=== PATIENT | male | born 1975 | race Caucasian/White ===

== ENCOUNTER 2024-05-15 09:23 | Outpatient (CLI) | payer OTHER, SELFPAY ==
[2024-05-15 18:32] LABS: Basophils # 0.1 K/mm3 (0-0.2); Basophils % 0.9 % (0.1-2.0); Eosinophils # 0.1 K/mm3 (0.0-0.4); Eosinophils % 1.1 % (0.1-12.0); Hematocrit 53.8 % (42.0-52.0); Hemoglobin 17.6 g/dL (14.1-18.0); Lymphocytes # 1.7 K/mm3 (0.7-4.5); Lymphocytes % 20.8 % (10-50); Mean Corpuscular HGB Conc 32.8 g/dL (31.8-35.4); Mean Corpuscular Hemoglobin 33.6 pg (27.0-31.2); Mean Corpuscular Volume 102.3 fl (80-94); Mean Platelet Volume 10.2 fl (7.4-10.4); Monocytes # 0.8 K/mm3 (0.1-1.0); Monocytes % 10.2 % (1.7-9.3); Neutrophils # 5.5 K/mm3 (1.8-7.8); Neutrophils % 66.9 % (37.0-80.0); Platelet Count 227 K/mm3 (142-424); Red Blood Count 5.26 M/mm3 (4.60-6.20); Red Cell Distribution Width 14.4 % (11.5-17.5); White Blood Count 8.2 K/mm3 (4.8-10.8)
[2024-05-15 18:58] LABS: Alanine Aminotransferase 127 U/L (12-78); Albumin Level 4.4 g/dl (3.5-5.0); Albumin/Globulin Ratio 1.7 (1.1-1.8); Alkaline Phosphatase 75 U/L (38-126); Anion Gap 13.9 mEq/L (5-15); Aspartate Amino Transferase 56 U/L (17-59); Bilirubin,Total 0.7 mg/dl (0.2-1.3); Blood Urea Nitrogen 17 mg/dl (9-20); Calcium 9.7 mg/dl (8.4-10.2); Carbon Dioxide 26 mmol/L (22.0-30.0); Chloride 106 mmol/L (98-107); Estimated Glomerular Filt Rate 64 ml/min (>60); GFR (African American) 78 ML/MIN (>60); Globulin 2.6 g/dL (1.3-3.2); Glucose 91 mg/dl (74-100); Potassium 3.9 mmoL/L (3.5-5.1); Sodium 142 mmol/L (136-145)
[2024-05-15 19:10] LABS: Hemoglobin A1C 4.9 % (4.0-6.0)
[2024-05-15 19:17] LABS: 25-OH Vitamin D, Total 47.3 ng/mL (30-100)
[2024-05-15 19:30] LABS: Prostate Specific Ag Screen 1.3 ng/ml (0.0-4.0); Thyroid Stimulating Hormone 1.04 uIU/mL (0.465-4.68)
[2024-05-15 19:49] LABS: Vitamin B12 298 pg/mL (239-931)
== END 2024-05-15 23:59 | disposition home or self-care (01) ==
LOC: LAB.DROPOF 05-18 09:23
PROVIDERS: PCP Nurse Practitioner Family; Visit Provider Nurse Practitioner Family
DX: Z76.89 Persons encountering health services in other specified circumstances (principal)
CPT/HCPCS: 80050; 80053; 82306; 82607; 83036; 84443; 85025; G0103

== ENCOUNTER 2024-06-03 14:54 | Outpatient (CLI) | payer MEDICARE, MEDICAID, SELFPAY ==
--- NOTE | 2024-06-03 15:05 | MR_ITS ---
FINAL REPORT CLINICAL HISTORY: LOw back pain FINDINGS: Multiplanar MR imaging of the lumbar spine was performed without contrast. On the sagittal T2-weighted images, disc degeneration is seen at several levels. There are Schmorl's nodes at multiple levels. Multiple hemangiomas are identified. The vertebral alignment is normal. There is no evidence of fracture. The conus has an unremarkable appearance. L1-2: There is no significant canal stenosis or neural foraminal narrowing. L2-3: An annular bulge and facet arthropathy are present. There is no significant canal stenosis or neural foraminal narrowing. L3-4: Annular disc bulge is present. There is mild central canal stenosis with an AP diameter of the thecal sac of 9 mm. L4-5: An annular bulge and facet arthropathy are present. Small central disc protrusion contacts the L5 nerve roots. There is mild bilateral neural foraminal narrowing. L5-S1: An annular bulge and facet arthropathy are present. There is mild bilateral neural foraminal narrowing. IMPRESSION: Small central disc protrusion at L4-5 contacts the L5 nerve roots. Multilevel degenerative disc disease and spondylosis with mild central canal stenosis at L3-4. Reviewed, Interpreted and Dictated by Collins Cotto III, MD Transcribed by Yennifer Ramos Authenticated and [facility]
== END 2024-06-03 23:59 | disposition home or self-care (01) ==
LOC: RAD 14:56
PROVIDERS: PCP Family Medicine; Visit Provider Nurse Practitioner Family
DX: M54.50 Low back pain, unspecified (principal); M79.604 Pain in right leg
CPT/HCPCS: 72148

== ENCOUNTER 2024-06-10 15:02 | Outpatient (CLI) | payer MEDICARE, MEDICAID, SELFPAY ==
[2024-06-10] MEDS: ALBUTEROL 0.083% 2.5 MG/3 ML NEB IH (15:53)
== END 2024-06-10 23:59 | disposition home or self-care (01) ==
LOC: RT 15:04
PROVIDERS: PCP Family Medicine; Visit Provider Nurse Practitioner Family
DX: R06.02 Shortness of breath (principal); F17.210 Nicotine dependence, cigarettes, uncomplicated
CPT/HCPCS: 94060; 94726; 94729; J7613

== ENCOUNTER 2024-07-08 10:51 | Outpatient (POV) | payer MEDICARE, MEDICAID, SELFPAY ==
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
[2024-07-08 11:57] VITALS: BP 131/76; PULSE 79; RESP 18; O2SAT 97; BMI 28.8
== END 2024-07-08 23:59 | disposition home or self-care (01) ==
LOC: SC.PAIN 10:52
PROVIDERS: PCP Family Medicine; Visit Provider Nurse Practitioner Family
DX: M46.1 Sacroiliitis, not elsewhere classified (principal); M51.36 Other intervertebral disc degeneration, lumbar region; M54.2 Cervicalgia; M54.12 Radiculopathy, cervical region; Z73.89 Other problems related to life management difficulty
CPT/HCPCS: 99202; G0463

== ENCOUNTER 2024-07-21 10:08 | Day surgery (SDC) | payer MEDICARE, MEDICAID, SELFPAY ==
[2024-07-21 10:24] VITALS: BP 138/80; PULSE 84; RESP 16; TEMP 36.2; O2SAT 95; BMI 29.0
[2024-07-21 11:01] VITALS: BP 126/80; PULSE 85; RESP 18; O2SAT 98
[2024-07-21 11:03] VITALS: BP 126/80; PULSE 85; RESP 18; O2SAT 96
[2024-07-21 11:10] VITALS: BP 128/76; PULSE 74; RESP 18; O2SAT 96
--- NOTE | 2024-07-21 11:12 | EXP.PAIN.PRO ---
Procedure Date: 07/21/24 Time: 11:00 Anesthesiologist:: Kyaw He CRNA Complications:: None Pre-procedure Diagnosis:: Right sacroiliitis Post-procedure Diagnosis:: Same Indications for Procedure:: Patient is a pleasant 48-year-old male comes to clinic today for right sacroiliac joint injection of cortisone and local anesthetic. He describes right posterior hip pain is constant, dull, aching. He reports having difficulty transitioning from sitting to standing. He rates his pain 7/10. Procedure Details:: Procedure: Right sacroliliac joint injection under fluoroscopy Informed consent was obtained and the risk and benefits of the procedure were explained to the patient.~ The patient was taken to the procedure room and noninvasive monitors were placed including noninvasive blood pressure cuff and pulse oximeter.~ The patient was placed prone on the procedure table.~ The~ right hip was cleansed using Betadine as a cleansing solution.~ C-arm fluorosocpy was used to view the right SI joint.~ The skin and subcutaneous tissues were anesthetized using Lidocaine 1.5% and a 25-gauge needle.~ After this, a 22-gauge spinal needle was inserted under fluoroscopic guidance into the inferior aspect of the right SI joint.~ Omnipaque dye was injected and a good spread was seen throughout the joint.~ After this, approximately 5 mL of bupivacaine 0.25% and Depo-Medrol 40 mg was incrementally injected into the sacroiliac joint.~ The patient tolerated the procedure well with no complications.~ The patient was observed in the Pain Clinic, then discharged home neurologically intact.~ Plan and Disposition:: Patient was discharged without incident.
[2024-07-21] MEDS: BUPIVACAINE 0.25% 10ML INJ 25 MG IJ (11:46)
[2024-07-21] MEDS: LIDOCAINE 1% 5ML PF VIAL 5 ML (11:47)
[2024-07-21] MEDS: methylPREDNISolone ACETATE 80MG/ML VIAL 80 MG (11:47)
== END 2024-07-21 11:10 | disposition home or self-care (01) ==
PROVIDERS: PCP Family Medicine; Visit Provider Nurse Anesthetist, Certified Registered
DX: M46.1 Sacroiliitis, not elsewhere classified (principal)
CPT/HCPCS: 27096; G0260; J1010

== ENCOUNTER 2024-08-04 12:09 | Outpatient (CLI) | payer MEDICARE, MEDICAID, SELFPAY ==
[2024-08-04 18:44] LABS: Basophils # 0.1 K/mm3 (0-0.2); Basophils % 0.9 % (0.1-2.0); Eosinophils # 0.1 K/mm3 (0.0-0.4); Eosinophils % 1.3 % (0.1-12.0); Hematocrit 54.5 % (42.0-52.0); Hemoglobin 17.3 g/dL (14.1-18.0); Lymphocytes # 1.6 K/mm3 (0.7-4.5); Lymphocytes % 20.7 % (10-50); Mean Corpuscular HGB Conc 31.8 g/dL (31.8-35.4); Mean Corpuscular Hemoglobin 33.7 pg (27.0-31.2); Mean Corpuscular Volume 106.1 fl (80-94); Mean Platelet Volume 9.4 fl (7.4-10.4); Monocytes # 0.6 K/mm3 (0.1-1.0); Monocytes % 7.4 % (1.7-9.3); Neutrophils # 5.4 K/mm3 (1.8-7.8); Neutrophils % 69.7 % (37.0-80.0); Platelet Count 220 K/mm3 (142-424); Red Blood Count 5.13 M/mm3 (4.60-6.20); Red Cell Distribution Width 14.9 % (11.5-17.5); White Blood Count 7.8 K/mm3 (4.8-10.8)
[2024-08-04 19:01] LABS: Alanine Aminotransferase 59 U/L (12-78); Albumin Level 3.6 g/dl (3.5-5.0); Albumin/Globulin Ratio 1.4 (1.1-1.8); Alkaline Phosphatase 62 U/L (38-126); Aspartate Amino Transferase 60 U/L (17-59); Bilirubin,Total 0.7 mg/dl (0.2-1.3); Blood Urea Nitrogen 8 mg/dl (9-20); Calcium 9.1 mg/dl (8.4-10.2); Carbon Dioxide 31 mmol/L (22.0-30.0); Chloride 106 mmol/L (98-107); Estimated Glomerular Filt Rate 103 ml/min (>60); GFR (African American) 124 ML/MIN (>60); Globulin 2.6 g/dL (1.3-3.2); Glucose 99 mg/dl (74-100); Sodium 138 mmol/L (136-145); Total Protein,Serum 6.2 g/dl (6.3-8.2)
[2024-08-04 19:32] LABS: Thyroid Stimulating Hormone 0.98 uIU/mL (0.465-4.68)
== END 2024-08-04 23:59 | disposition home or self-care (01) ==
LOC: LAB.DROPOF 08-05 12:10
PROVIDERS: PCP Family Medicine; Visit Provider Family Medicine
DX: J42 Unspecified chronic bronchitis (principal); R25.1 Tremor, unspecified
CPT/HCPCS: 80050; 80053; 84443; 85025; 87635

== ENCOUNTER 2024-08-13 12:58 | Outpatient (POV) | payer MEDICARE, MEDICAID, SELFPAY ==
--- NOTE | 2024-08-13 13:21 | EXP.PAIN.SOA ---
[facility] Disclaimer: The information contained in this section may have been updated after the patient was seen, as this information can be updated by other users. Medical History (Updated 08/13/24 @ 14:19 by Carmen Phan APRN) Tremor Chronic bronchitis Impacted cerumen of left ear Hearing loss Surgical History History of back surgery Family History Other Hypertension Social History Smoking Status: Current every day smoker alcohol intake: current current occupational status: other Travel in the last 8 weeks: None PM Subjective & Objective Subjective Subjective:: Patient is a pleasant 48-year-old male who presents today for follow-up of right SI injection on 07/21/2024. Today he rates his pain a 8 out of 10. He denies any new trauma or injury. He states that that injection really just numbed his buttocks area and did not seem to make much difference on the overall back and right hip pain. Today he does state he still experiencing that chronic pain throughout his low back along the right side and does feel like he has had more numbness going down into his right leg. Patient does also state that his leg has been randomly giving out. He states all of this is affecting his ability perform activities of daily living such as cooking and cleaning. Patient has tried and failed conservative therapy including oral medication, heat and ice, topicals, chiropractor therapy and continued at home stretching exercise longer than 6 weeks. Patient did have physical therapy in the past however it caused worsening pain. On his last visit the patient was prescribed compounded cream. Today he states that he did not really notice significant relief with this. Patient states the only thing that has ever really seem to provide much improvement was Percocet and gabapentin.His French has been reviewed and is appropriate. Review of Systems: General: No recent weight changes, no fever, no sleep disturbances Respiratory: No cough, no shortness of air, no recurring pulmonary infections Cardiovascular/peripheral vascular: No chest pain, no palpitations, no edema, no shortness of breath Gastrointestinal: No new onset incontinence, normal bowel movements reported Genitourinary: No new onset incontinence Musculoskeletal: Low back pain, right leg pain Psychiatric: [Normal mood/affect] Neurological: [Denies weakness in extremities], [denies balance issues] Pain at rest (0-10 scale): 8 Objective Objective:: Physical Exam: General: Alert and oriented x3, no acute distress, pleasant and cooperative Lungs: Respirations even and unlabored, symmetrical chest expansion Eyes: PERRL Musculoskeletal: Flexion and extension of lumbar [spine] somewhat guarded secondary to pain, [antalgic gait noted] positive right leg raise with decreased sensation to light touch and decreased reflexes Neurological: Speech clear, no gross sensory deficit FINDINGS: Multiplanar MR imaging of the lumbar spine was performed without contrast. On the sagittal T2-weighted images, disc degeneration is seen at several levels. There are Schmorl's nodes at multiple levels. Multiple hemangiomas are identified. The vertebral alignment is normal. There is no evidence of fracture. The conus has an unremarkable appearance. L1-2: There is no significant canal stenosis or neural foraminal narrowing. L2-3: An annular bulge and facet arthropathy are present. There is no significant canal stenosis or neural foraminal narrowing. L3-4: Annular disc bulge is present. There is mild central canal stenosis with an AP diameter of the thecal sac of 9 mm. L4-5: An annular bulge and facet arthropathy are present. Small central disc protrusion contacts the L5 nerve roots. There is mild bilateral neural foraminal narrowing. L5-S1: An annular bulge and facet arthropathy are present. There is mild bilateral neural foraminal narrowing. IMPRESSION: Small central disc protrusion at L4-5 contacts the L5 nerve roots. Multilevel degenerative disc disease and spondylosis with mild central canal stenosis at L3-4. Reviewed, Interpreted and Dictated by Collins Cotto III, MD Transcribed by Yennifer Ramos Authenticated and [facility] Has patient had previous pain injection?: Yes Percent improvement in pain since last injection: 0 Conservative treatment options previously tried: Home exercise plan Length of treatment: Longer than 6 weeks Meds Home Medications and Allergies Home Medications ?Medication ?Instructions ?Recorded ?Confirmed ?Type fluticasone fur. 100 mcg-umeclid 1 inh inhalation DAILY #60 ea 07/10/24 08/13/24 Rx 62.5 mcg-vilant 25 mcg inhalat.powder (Trelegy Ellipta) glycopyrrolate 9 mcg-formoterol 2 puff inhalation BID #10.7 grams 07/12/24 08/13/24 Rx 4.8 mcg HFA aerosol inhaler (Bevespi Aerosphere) albuterol sulfate 90 mcg/actuation 2 puff inhalation QID PRN 08/04/24 08/13/24 Rx aerosol inhaler shortness of breath or wheezing #8.5 grams azithromycin 500 mg tablet See Rx Instructions PO .COMPLEX #3 08/04/24 08/13/24 Rx tabs methylprednisolone 4 mg tablets in See Rx Instructions PO PER PKG DIR 08/04/24 08/13/24 Rx a dose pack (Medrol (Chidi)) #21 tabs New Prescriptions to Start Prescriptions: Allergies Allergy/AdvReac Type Severity Reaction Status Date / Time No Known Allergies Allergy Verified 08/13/24 13:54 Assessment and Plan *Assessment and plan (1) Degenerative disc disease, lumbar: Status: Acute Category: Medical Code(s): M51.36 - Other intervertebral disc degeneration, lumbar region (2) Lumbar radiculopathy: Status: Acute Category: Medical Code(s): M54.16 - Radiculopathy, lumbar region Plan patient is experiencing significant pain throughout his low back with radiating symptoms down his entire right extremity. Patient does have numbness with decreased sensation into this extremity and does feel like his leg is giving out more. I did discuss with the patient that he may benefit from a transforaminal epidural steroid injection. Risk and benefits were discussed with the patient and he would like to proceed forward with this plan of care. Patient has tried and failed conservative therapy including continued at home stretching exercise for longer than 6 weeks. Patient will be scheduled for a right transforaminal epidural steroid injection L4-L5 and L5-S1 under fluoroscopy. Patient has been instructed to contact the clinic with any concerns before the next appointment. Dr. Madera has reviewed this note and agrees with this plan of care. This note was dictated using voice recognition software and make contain errors or omissions. All injections are used with Lidocaine or Bupivacaine and Depo Medrol.
[2024-08-13 14:01] VITALS: BP 123/75; PULSE 79; RESP 16; O2SAT 97; BMI 29.0
== END 2024-08-13 23:59 | disposition home or self-care (01) ==
LOC: SC.PAIN 12:59
PROVIDERS: PCP Family Medicine; Visit Provider Nurse Practitioner Family
DX: M51.16 Intervertebral disc disorders with radiculopathy, lumbar region (principal); F17.210 Nicotine dependence, cigarettes, uncomplicated; Z73.89 Other problems related to life management difficulty
CPT/HCPCS: 99212; G0463

== ENCOUNTER 2024-09-01 11:07 | Day surgery (SDC) | payer MEDICARE, MEDICAID, SELFPAY ==
[2024-09-01 11:30] VITALS: BP 124/74; BP 125/78; PULSE 66; PULSE 71; RESP 16; TEMP 36.7; O2SAT 95; O2SAT 98; BMI 29.0
[2024-09-01 11:40] VITALS: BP 135/66; PULSE 74; RESP 18; O2SAT 94
[2024-09-01] MEDS: LIDOCAINE 1% 5ML PF VIAL 5 ML (11:40)
[2024-09-01 11:41] VITALS: BP 135/66; PULSE 74; RESP 18; O2SAT 94
--- NOTE | 2024-09-01 11:43 | P.PCN_ITS ---
Procedure Date: 09/01/24 Time: 11:30 Anesthesiologist:: Kyaw He CRNA Complications:: None Pre-procedure Diagnosis:: Degenerative disc lumbar spine multilevels. Lumbar radiculopathy. Lumbar disc bulge L4-5, L5-S1. Lumbar postlaminectomy syndrome. Post-procedure Diagnosis:: Same. Indications for Procedure:: Patient is a pleasant 48-year-old male who comes our clinic today for right L4-5 and L5-S1 transforaminal epidural steroid injection. Patient reports right hip and leg radicular symptoms to the foot. Patient also reports some low back pain off the midline to the right. Denies left leg radicular symptoms. Rates his pain 8/10. Procedure Details:: Details of the procedure explained to the patient. The patient was taken to procedure room placed in the prone position. The area over the lumbar spine was cleansed using chlorhexidine as a cleansing solution. Using fluoroscopy guidance markers were placed over the right border of the L4-5 and L5-S1 vertebral body. At each marker the skin and subcutaneous tissue was an esthetized using 1% lidocaine and a 25-gauge needle. At this time using fluoroscopy guidance 3 and half inch 22-gauge spinal needle was used to access the upper one third of the L4 for 5 and L5-S1 foramen. Using fluoroscopy guidance in the lateral position needle position was confirmed using 0.5 mL of contrast dye. Good spread was noted in the epidural space at each level. After negative aspiration 2 mL of 1% lidocaine and 40 mg of Depo-Medrol was injected at each level. Patient tolerated procedure without difficulty. There are no complications. Plan and Disposition:: Patient was discharged without incident.
== END 2024-09-01 11:45 | disposition home or self-care (01) ==
PROVIDERS: PCP Family Medicine; Visit Provider Nurse Anesthetist, Certified Registered
DX: M51.16 Intervertebral disc disorders with radiculopathy, lumbar region (principal); M96.1 Postlaminectomy syndrome, not elsewhere classified
CPT/HCPCS: 64483; 64484; J1010

== ENCOUNTER 2024-09-23 11:20 | Outpatient (POV) | payer MEDICARE, MEDICAID, SELFPAY ==
[2024-09-23 11:37] VITALS: BP 121/70; PULSE 92; RESP 14; O2SAT 92; BMI 29.0
--- NOTE | 2024-09-23 12:04 | EXP.PAIN.SOA ---
[facility] Disclaimer: The information contained in this section may have been updated after the patient was seen, as this information can be updated by other users. Medical History Tremor Chronic bronchitis Impacted cerumen of left ear Hearing loss Surgical History History of back surgery Family History Other Hypertension Social History Smoking Status: Current every day smoker alcohol intake: current current occupational status: other Travel in the last 8 weeks: None PM Subjective & Objective Subjective Subjective:: Patient is a pleasant 48-year-old male who presents today for follow-up of right transforaminal epidural steroid injection L4-L5 and L5-S1 on 09/01/2024. Today he rates his pain a 7 out of 10. He denies any new trauma or injury. He does state that he only had improvement really while the numbness medication was working and by the time 3 or 4 hours had passed he was back to his baseline. Patient does state that often times it just causes more issue than providing improvement with the injections. Patient has been given compounded cream however felt like it did not really provide much improvement. Patient has stated that the only thing that really ever made a difference in the past was gabapentin and Percocet. His French has been reviewed and is appropriate. Review of Systems: General: No recent weight changes, no fever, no sleep disturbances Respiratory: No cough, no shortness of air, no recurring pulmonary infections Cardiovascular/peripheral vascular: No chest pain, no palpitations, no edema, no shortness of breath Gastrointestinal: No new onset incontinence, normal bowel movements reported Genitourinary: No new onset incontinence Musculoskeletal: Low back pain Psychiatric: [Normal mood/affect] Neurological: [Denies weakness in extremities], [denies balance issues] Pain at rest (0-10 scale): 7 Objective Objective:: Physical Exam: General: Alert and oriented x3, no acute distress, pleasant and cooperative Lungs: Respirations even and unlabored, symmetrical chest expansion Eyes: PERRL Musculoskeletal: Flexion and extension of lumbar [spine] somewhat guarded secondary to pain, [antalgic gait noted] Neurological: Speech clear, no gross sensory deficit Has patient had previous pain injection?: Yes Percent improvement in pain since last injection: Minimal Conservative treatment options previously tried: Home exercise plan Length of treatment: Longer than 12 weeks Meds Home Medications and Allergies Home Medications ?Medication ?Instructions ?Recorded ?Confirmed ?Type fluticasone fur. 100 mcg-umeclid 1 inh inhalation DAILY #60 ea 07/10/24 09/23/24 Rx 62.5 mcg-vilant 25 mcg inhalat.powder (Trelegy Ellipta) glycopyrrolate 9 mcg-formoterol 2 puff inhalation BID #10.7 grams 07/12/24 09/23/24 Rx 4.8 mcg HFA aerosol inhaler (Bevespi Aerosphere) albuterol sulfate 90 mcg/actuation 2 puff inhalation QID PRN 08/04/24 09/23/24 Rx aerosol inhaler shortness of breath or wheezing #8.5 grams azithromycin 500 mg tablet See Rx Instructions PO .COMPLEX #3 08/04/24 09/23/24 Rx tabs methylprednisolone 4 mg tablets in See Rx Instructions PO PER PKG DIR 08/04/24 09/23/24 Rx a dose pack (Medrol (Chidi)) #21 tabs New Prescriptions to Start Prescriptions: Allergies Allergy/AdvReac Type Severity Reaction Status Date / Time No Known Allergies Allergy Verified 08/13/24 13:54 Assessment and Plan *Assessment and plan (1) Degenerative disc disease, lumbar: Status: Acute Category: Medical Code(s): M51.36 - Other intervertebral disc degeneration, lumbar region (2) Lumbar radiculopathy: Status: Acute Category: Medical Code(s): M54.16 - Radiculopathy, lumbar region Plan Patient was counseled due to only getting very temporary relief with the past 2 injections that I do believe he would benefit more with the intrathecal pain pump trial. Risk and benefits and educational handouts were given to the patient at today's visit. They would like time to think on this. I have counseled them that there is no robledo and that they are more than welcome to call us back to schedule their next follow-up appointment or if they would like to proceed forward with our office ordering the psychological evaluation. Patient was counseled that we would need this evaluation before proceeding forward with ordering the trial. Patient acknowledges understanding. Patient will contact our office for his next follow-up. I did let them know that if they wanted us to proceed forward with the psychological evaluation they could call and we did send this order on. Patient has been instructed to contact the clinic with any concerns before the next appointment. Dr. Madera has reviewed this note and agrees with this plan of care. This note was dictated using voice recognition software and make contain errors or omissions. All injections are used with Lidocaine or Bupivacaine and Depo Medrol.
== END 2024-09-23 23:59 | disposition home or self-care (01) ==
LOC: SC.PAIN 11:22
PROVIDERS: PCP Family Medicine; Visit Provider Nurse Practitioner Family
DX: M51.16 Intervertebral disc disorders with radiculopathy, lumbar region (principal); F17.210 Nicotine dependence, cigarettes, uncomplicated
CPT/HCPCS: 99212; G0463

== ENCOUNTER 2025-09-28 15:00 | Outpatient (CLI) | payer MEDICARE, MEDICAID, SELFPAY ==
--- OUTSIDE RECORDS SUMMARY | 2025-07-31 09:15 | XMS_ITS | Encounter Summary ---
Author Organization [place] [address] Care Team Providers Care Plater Supervisor Name Role Phone Unavailable Primary Care Provider Unavailabl e Reason for Visit * Reason Comments Cough cough, congestion, h eadache, sore throat, fever x Saturday Encounter Details Date Type Department Care Team (Late st Contact Info) Description 07/31/2025 10:15 AM EDT Office Visit [facility] [address] [address] Pepe Caceres, DO [address] [place] [address] [phone] Pneumonia of right lower lobe due to infectious organism (Primary Dx); Acute cough Social History Tobacco Use Types Packs/Day Years Used Date Smoking Tobacco: Every Day Cigarettes 1 35.4 Started: 05/14/1990 Smokeless Tobacco: Never Alcohol Use Standard Drinks/Week Comments Yes 2 (1 standard drink = 0.6 oz pur e alcohol) PHQ-2 Answer Date Recorded PHQ-2 Score 6 04/17/2019 Sex and Gender Information Value Date Recorded Sex Assigned at Not on file Legal Sex Male 3:29 PM EDT Gender Identity Not on file Sexual Orientation Not on file documented as of this encounter Last Filed Vital Signs Vital Sign Reading Time Taken Comments Blood Pressure 100/60 07/31/2025 10:06 AM EDT Pulse 96 07/31/2025 10:06 AM EDT Temperature 37.2 C (99 F) 07/31/2025 10:06 AM EDT Respiratory Rate 14 07/31/2025 10:06 AM EDT Oxygen Saturation 93% 07/31/2025 10:06 AM EDT Inhaled Oxygen Concentration - - Weight 82.6 kg (182 lb) 07/31/2025 10:06 AM EDT Height 185.4 cm (6' 1 ) 07/31/2025 10:06 AM EDT Body Mass Index 24.01 07/31/2025 10:06 AM EDT documented in this encounter Functional Status * Is the person deaf or does he/she have serious difficulty hearing? Answer Date of Assessment Author No 05/07/2018 1:54 PM EDT Lucy Kern RMA * Is the person blind or does he/she have serious difficulty seeing even when wearing glasses? Answer Date of Assessment Author No 05/07/2018 1:54 PM EDT Lucy Kern RMA * Does this person have serious difficulty walking or climbing stairs? Answer Date of Assessment Author No 05/07/2018 1:54 PM EDT Lucy Kern RMA * Does this person have difficulty dressing or bathing? Answer Date of Assessment Author No 05/07/2018 1:54 PM EDT Lucy Kern RMA * Because of a physical, mental or emotional condition, does this person have difficulty doing errands alone such as visiting a doctor's office or shopping? Answer Date of Assessment Author No 05/07/2018 1:54 PM EDT Lucy Kern RMA documented as of this encounter Mental Status * Because of a physical, mental or emotional condition, does this person have serious difficulty concentrating, remembering or making decisions? Answer Entry Date Author No 05/07/2018 1:54 PM EDT Lucy Kern RMA documented in this encounter Ordered Prescriptions Prescription Sig Dispense Quantity Refills Last Filled Start Date End Date levoFLOXacin (LEVAQUIN) 500 mg Oral TabletIndications: Pneumonia of right lower lobe due to infectious organism Take 1 Tablet by mouth daily for 10 days. 10 Tablet 07/31/2025 08/10/2025 documented in this encounter Progress Notes * Pepe Caceres DO - 07/31/2025 10:15 AM EDT Subjective: Patient ID: Carlito Paez is a 49 y.o. male. Chief Complaint Patient presents with Cough cough, congestion, headache, sore throat, fever x Saturday Cough Patient presents today with a 7-day history of URI symptoms with progressive cough, congestion, headache and sore throat. While reported fever, no evidence objective measurement of complaints of feverishness and chills. Cough has become increasingly productive. He has a history of significant COPD requiring. His presents with similar symptoms in which she is convinced that they both have pneumonia. Her workup is negative for pneumonia but likely bronchitis. Patients past medical, family and social histories were reviewed and updated. There were no changesexcept as noted. Review of Systems Respiratory: Positive for cough. Objective: Vitals: 07/31/25 1006 BP: 100/60 BP Location: Left arm Patient Position: Sitting Pulse: 96 Resp: 14 Temp: 99 ??F (37.2 ??C) TempSrc: Oral SpO2: 93% Weight: 182 lb (82.6 kg) Height: 6' 1 (1.854 m) Body mass index is 24.01 kg/m??. Physical Exam Vitals reviewed. Constitutional: General: He is not in acute distress. Appearance: He is well-developed. He is not ill-appearing. HENT: Right Ear: Tympanic membrane, ear canal and external ear normal. Left Ear: Tympanic membrane, ear canal and external ear normal. Nose: Mucosal edema, congestion and rhinorrhea present. Mouth/Throat: Pharynx: No oropharyngeal exudate. Cardiovascular: Rate and Rhythm: Normal rate and regular rhythm. Heart sounds: Normal heart sounds. No murmur heard. Pulmonary: Effort: No respiratory distress. Breath sounds: Wheezing and rales (particularly to the right base) present. No rhonchi. Lymphadenopathy: Cervical: No cervical adenopathy. Results for orders placed or performed in visit on 07/31/25 POCT CEPHEID SARS COV-2 RNA + FLU A/B + RSV Result Value Ref Range SARS COV-2 RNA Negative Negative, Invalid INFLUENZA A Negative Negative, Invalid INFLUENZA B Negative Negative, Invalid RSV Negative Negative, Invalid Lot Number [id number] Expiration Date 02.06.26 SeriAl # Control Line Yes YES/NO Chest x-ray imaging evaluated by me indicates a right lower lobe infiltrate consistent with a rightlower lobe pneumonia. Assessment & Plan Pneumonia of right lower lobe due to infectious organism Orders: levoFLOXacin (LEVAQUIN) 500 mg Oral Tablet; Take 1 Tablet by mouth daily for 10 days. Acute cough Orders: POCT CEPHEID SARS COV-2 RNA + FLU A/B + RSV XR CHEST PA AND LATERAL; Future Acute right lower lobe pneumonia. The patient does have a history of COPD, I do not see any indication or need for steroid at this time. Monitor closely with follow-up if symptoms do not begin to improve or if they worsen over the next 3-5 days. Given explanation and instructions on the symptomatic management of the present condition and the supportive care appropriate for this condition. 1. Patient has been instructed that if any acute problems worsen or fail to improve that they should contact urgent care or covering physician. 2. Patient expressed verbal understanding of above assessment and plan. This chart was completed using Fingo voice recognition technology and may contain unintended errors. No follow-ups on file. documented in this encounter Plan of Treatment Not on file documented as of this encounter Goals Goal Patient Goal Type Associated Problems Recent Progress Patient-Stated? Author Maintain a healthy diet, exercise regularly and maintain an ideal body weight General No Lindsey Forrester CCMA Stay Tobacco Free Lifestyle No Lindsey Forrester CCMA documented as of this encounter Procedures Procedure Name Priority Date/Time Associated Diagnosis Comments POCT CEPHEID SARS COV-2 RNA + FLU A/B + RSV Routine 07/31/2025 10:17 AM EDT Acute cough documented in this encounter Results * XR CHEST PA AND LATERAL (07/31/2025 10:43 AM EDT) Anatomical Region Laterality Modality Chest Radiographic Donna ging 07/31/2025 10:4 3 AM EDT Impressions 07/31/2025 10:58 AM EDT Right lower lobe pneumonia - Note: Radiology results need to be interpreted within a comprehensive clinical context. If you have questions about the radiology report, please contact the office of the ordering clinician. Narrative 07/31/2025 10:58 AM EDT PA AND LATERAL CHEST X-RAY, 07/31/2025 10:43 AM CLINICAL HISTORY: R05.1-Acute [id number] COMPARISON: 2020 PROCEDURE COMMENTS: Frontal and lateral views of the chest. FINDINGS: Suspected patchy infiltrate in the RIGHT lower lobe compatible with pneumonia. Left lung clear. Cardiac and mediastinal contours normal Procedure Note Kirk Melendez MD - 07/31/2025 PA AND LATERAL CHEST X-RAY, 07/31/2025 10:43 AM CLINICAL HISTORY: R05.1-Acute [id number] COMPARISON: 2020 PROCEDURE COMMENTS: Frontal and lateral views of the chest. FINDINGS: Suspected patchy infiltrate in the RIGHT lower lobe compatible withpneumonia. Left lung clear. Cardiac and mediastinal contours normal IMPRESSION: Right lower lobe pneumonia - Note: Radiology results need to be interpreted within a comprehensiveclinical context. If you have questions about the radiology report, please contactthe office of the ordering clinician. us Pepe Caceres DO IMG DIAGNOSTIC IMAGING ORDERABL ES Final Result * POCT CEPHEID SARS COV-2 RNA + FLU A/B + RSV (07/31/2025 10:17 AM EDT) SARS COV-2 RNA Negative Negative, Invalid [facility] INFLUENZA A Negative Negative, Invalid [facility] INFLUENZA B Negative Negative, Invalid [facility] RSV Negative Negative, Invalid [facility] Lot Number [id number] [facility] Expiration Date 02.06.26 [facility] OFFICE SeriAl # [facility] Control Line Yes YES/NO [facility] 07/31/2025 10:1 7 AM EDT Pepe Caceres DO POINT OF CARE TEST ORDERABLES F inal Result [facility] documented in this encounter Visit Diagnoses Diagnosis Pneumonia of right lower lobe due to infectious organism- Primary Acute cough Acute cough documented in this encounter Additional Health Concerns Assessment Noted Time PHQ-9 Depression Total Score: 24 019 1:18 PM EST PHQ-2 Depression Total Score: 6 12/09/19 19 1:18 PM EST documented as of this encounter
[2025-09-28 19:19] LABS: Hematocrit 45.2 % (42.0-52.0); Hemoglobin 15.9 g/dL (14.1-18.0); Immature Granulocytes % 0.2 %; Mean Corpuscular HGB Conc 35.2 g/dL (31.8-35.4); Mean Corpuscular Hemoglobin 34.3 pg (27.0-31.2); Mean Corpuscular Volume 97.6 fl (80-94); Nucleated Red Blood Cells % 0 %; Platelet Count 264 K/mm3 (142-424); Red Blood Count 4.63 M/mm3 (4.60-6.20); Red Cell Distribution Width-SD 46.2 fL; White Blood Count 8.5 K/mm3 (4.8-10.8)
[2025-09-28 19:34] LABS: Alanine Aminotransferase 26 U/L (12-78); Albumin Level 4.3 g/dl (3.5-5.0); Albumin/Globulin Ratio 1.5 (1.1-1.8); Alkaline Phosphatase 71 U/L (38-126); Anion Gap 9.3 mEq/L (5-15); Aspartate Amino Transferase 31 U/L (17-59); Bilirubin,Total 0.7 mg/dl (0.2-1.3); Blood Urea Nitrogen 9 mg/dl (9-20); Calcium 9.4 mg/dl (8.4-10.2); Carbon Dioxide 32 mmol/L (22.0-30.0); Chloride 100 mmol/L (98-107); Creatinine,Serum 0.90 mg/dl (0.66-1.25); Estimated Glomerular Filt Rate 89 ml/min (>60); GFR (African American) 108 ML/MIN (>60); Globulin 2.9 g/dL (1.3-3.2); Glucose 109 mg/dl (74-100); Potassium 4.3 mmoL/L (3.5-5.1); Sodium 137 mmol/L (136-145); Total Protein,Serum 7.2 g/dl (6.3-8.2)
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
== END 2025-09-28 23:59 | disposition home or self-care (01) ==
LOC: LAB.DROPOF 09-30 13:51
PROVIDERS: PCP Family Medicine; Visit Provider Family Medicine
DX: E53.8 Deficiency of other specified B group vitamins (principal); R25.1 Tremor, unspecified
CPT/HCPCS: 80053; 85025